=== PATIENT | female | born 1985 | race American Indian/Alaskan Native ===

== ENCOUNTER 2016-09-14 13:35 | Emergency (ER) | payer SELFPAY ==
[2016-09-14] MEDS ORDERED: TYLENOL PO ONE (14:05)
[2016-09-14] MEDS ORDERED: TYLENOL ONE (14:07)
[2016-09-14 18:41] VITALS: BP 126/76
[2016-09-14] MEDS ORDERED: MOTRIN PO ONE (18:55)
--- NOTE | 2016-09-14 19:01 | Emergency Department Report ---
ED Fever HPI - General Chief Complaint: Fever Stated Complaint: CHEST PAINS ,BODY ACHES/INFLAMED TONSILS Time Seen by Provider: 09/14/16 18:52 Source: patient Exam Limitations: no limitations - History of Present Illness Initial Comments: Patient presents with sore throat, body aches, fever, cough 2 days. Has been taking Tylenol which has not been helping. She states her sister has either flu or strep and she also had to come to the ER. He also admits to nausea and vomiting that started today. Fever Severity/Quality: greater than 100.5 F Fever Therapy [employer]: Tylenol Associated Symptoms: chest pain (she states from the coughing), cough, headache , muscle aches, nausea/vomiting, sore throat ED Review of Systems ROS: Stated complaint: CHEST PAINS ,BODY ACHES/INFLAMED TONSILS Other details as noted in HPI Constitutional: chills, diaphoresis, fever Eyes: denies: eye pain, eye discharge, vision change ENT: throat pain Respiratory: cough. denies: shortness of breath, wheezing Cardiovascular: chest pain (from coughing). denies: palpitations Gastrointestinal: nausea, vomiting. denies: abdominal pain, diarrhea Genitourinary: denies: urgency, dysuria, discharge Musculoskeletal: as per HPI, myalgia Skin: denies: rash, lesions Neurological: headache ED Past Medical Hx - Past Medical History Additional medical history: AMENIA - Social History Smoking Status: Never Smoker Substance Use Type: None - Medications Home Medications: Home Medications Medication Instructions Recorded Confirmed Last Taken Type Amoxicillin/K Clav Tab [Augmentin 1 tab PO Q12HR #20 tab 09/14/16 Unknown Rx 875 mg] Ibuprofen [Motrin 800 MG tab] 800 mg PO BID PRN #20 tablet 09/14/16 Unknown Rx ED Physical Exam - General Limitations: No Limitations General appearance: alert, in no apparent distress, other (ill appearance but nontoxic) - Head Head exam: Present: atraumatic, normocephalic - Eye Eye exam: Present: normal appearance, PERRL, other (sclera is red patient states due to crying) - ENT ENT exam: Present: mucous membranes moist - Expanded ENT Exam Expanded TM/Canal exam: Erythema: Left TM Mouth exam: Present: normal external inspection Teeth exam: Present: normal inspection Throat exam: Positive: tonsillar erythema - Neck Neck exam: Present: normal inspection, full ROM - Respiratory Respiratory exam: Present: normal lung sounds bilaterally. Absent: respiratory distress, wheezes, rales, rhonchi - Cardiovascular Cardiovascular Exam: Present: regular rate, normal rhythm. Absent: systolic murmur, diastolic murmur, rubs, gallop - GI/Abdominal GI/Abdominal exam: Present: soft, normal bowel sounds - Extremities Exam Extremities exam: Present: normal inspection, full ROM - Back Exam Back exam: Present: normal inspection, full ROM - Neurological Exam Neurological exam: Present: alert, oriented X3 - Psychiatric Psychiatric exam: Present: normal affect, normal mood - Skin Skin exam: Present: warm, dry, intact, normal color. Absent: rash ED Course Vital Signs 09/14/16 09/14/16 09/14/16 14:01 14:10 18:39 Temperature 100.7 F H 100.1 F H Pulse Rate 119 H 89 Respiratory 19 17 18 Rate Blood Pressure 119/77 Blood Pressure 126/76 [Left] O2 Sat by Pulse 100 99 Oximetry ED Medical Decision Making - Medical Decision Making Patient presents with bodyaches, fever, sore throat, cough. Has had sick contacts, her sister was dx with strep or flu, pt can not remember. Strep and flu physical exam indicates left otitis media. I will give Augmentin twice a day 10 days and ibuprofen for body aches. - Differential Diagnosis otitis media left, URI, flu, strep Critical Care Time: No Critical care attestation.: If time is entered above; I have spent that time in minutes in the direct care of this critically ill patient, excluding procedure time. ED Disposition Clinical Impression: Left otitis media, Body aches, Cough Disposition: DISCHARGED TO HOME OR SELFCARE Is pt being admited?: No Does the pt Need Aspirin: No Condition: Stable Instructions: Otitis Media (ED), Cold Symptoms (ED) Prescriptions: Amoxicillin/K Clav Tab [Augmentin 875 mg] 1 tab PO Q12HR #20 tab Ibuprofen [Motrin 800 MG tab] 800 mg PO BID PRN #20 tablet PRN Reason: body aches Referrals: PRIMARY CARE,MD [Primary Care Provider] - 3-5 Days [facility] [Outside] - 3-5 Days Forms: Work/School Release Form(ED) Time of Disposition: 20:01
== END 2016-09-14 20:12 | disposition home or self-care (01) ==
LOC: ED 13:35
DX: H66.92 Otitis media, unspecified, left ear (principal); M79.1 Myalgia; R05 Cough
CPT/HCPCS: 87116; 87400; 87430; 99283